=== PATIENT | female | born 1955 | race Caucasian/White ===

== ENCOUNTER 2021-07-14 05:15 | Day surgery (SDC) | payer OTHER ==
[~2021-07-14] VITALS: Ht 149.9 cm; Wt 59.5 kg
[~2021-07-14 05:15] MED LIST: ASPI-1450 PO; LISI-892 PO; METF-1211 PO; METO25XL PO; OMEP1CAP32 PO; SIMV-261 PO; SODIUM CHLORIDE 0.9% 1,000 ML IV SCH; TICA60TA PO; TICA90TA PO; [UNRECOGNIZED DRUG - CODE] CHEW
[2021-07-14] MEDS ORDERED: SODIUM CHLORIDE 0.9% 1,000 ML ONE (05:29)
[2021-07-14] MEDS ORDERED: ASPIRIN 81 MG CHEWABLE TABLET PO ONE (06:00)
[2021-07-14] MEDS ORDERED: DIAZEPAM 5 MG TABLET PO ONE (06:00)
[2021-07-14] MEDS ORDERED: DiphenhydrAMINE HCL 50 MG CAPSULE PO ONE (06:00)
[2021-07-14] MEDS ORDERED: ASPIRIN 81 MG CHEWABLE TABLET ONE (06:15)
[2021-07-14] MEDS ORDERED: DiphenhydrAMINE HCL 50 MG CAPSULE ONE (06:15)
[2021-07-14] MEDS ORDERED: DIAZEPAM 5 MG TABLET ONE (06:16)
[2021-07-14 06:56] LABS: GLUCOMETER DEV NAME(LOC) SDS.; GLUCOSE,POINT OF CARE 151 MG/DL (70-110)
[2021-07-14] MEDS ORDERED: IOHEXOL 300 MG/ML 50 ML VIAL ONE (07:29)
[2021-07-14] MEDS ORDERED: HEPARIN SODIUM 1000 UNITS/NS 1,000 ML ONE (07:30)
[2021-07-14] MEDS ORDERED: IOHEXOL 300 MG/ML 100 ML VIAL ONE (07:30)
[2021-07-14] MEDS ORDERED: LIDOCAINE/PF 1% 30 ML VIAL ONE (07:30)
[2021-07-14] MEDS ORDERED: IOHEXOL 300 MG/ML 150 ML VIAL ONE (07:30)
[2021-07-14] MEDS ORDERED: SODIUM BICARBONATE 50 MEQ/50 ML VIAL ONE (07:30)
[2021-07-14 07:47] VITALS: BP 139/76
[2021-07-14] MEDS ORDERED: FentaNYL CITRATE PF 100 MCG/2 ML VIAL ONE (07:50)
[2021-07-14] MEDS ORDERED: MIDAZOLAM HCL 2 MG/2 ML VIAL ONE (07:51)
[2021-07-14] MEDS ORDERED: MIDAZOLAM HCL 2 MG/2 ML VIAL IVP ONE (08:00)
[2021-07-14] MEDS ORDERED: HEPARIN SODIUM 1000 UNITS/NS 1,000 ML IARTER ONE (08:00)
[2021-07-14] MEDS ORDERED: IOHEXOL 300 MG/ML 150 ML VIAL IARTER ONE (08:00)
[2021-07-14] MEDS ORDERED: LIDOCAINE 1% 30 ML/SOD BICARB 8.4% 4 ML SQ ONE (08:00)
[2021-07-14] MEDS ORDERED: FentaNYL CITRATE PF 100 MCG/2 ML VIAL IVP ONE (08:00)
[2021-07-14] MEDS ORDERED: METOPROLOL TARTRATE 5 MG/5 ML VIAL ONE ×2 (08:13→08:18)
[2021-07-14] MEDS ORDERED: METOPROLOL TARTRATE 5 MG/5 ML VIAL IVP ONE ×2 (08:15→08:30)
[2021-07-14 08:27] VITALS: BP 132/77
== END 2021-07-14 13:10 | disposition home or self-care (01) ==
LOC: CATHLAB 05:15
PROVIDERS: ATTEND Internal Medicine Interventional Cardiology
DX: R94.39 Abnormal result of other cardiovascular function study (principal); R06.02 Shortness of breath; I25.10 Atherosclerotic heart disease of native coronary artery without angina pectoris; I25.82 Chronic total occlusion of coronary artery; E11.9 Type 2 diabetes mellitus without complications; I10 Essential (primary) hypertension; E78.5 Hyperlipidemia, unspecified; Z87.891 Personal history of nicotine dependence; Z79.84 Long term (current) use of oral hypoglycemic drugs; Z79.899 Other long term (current) drug therapy; Z90.49 Acquired absence of other specified parts of digestive tract; Z98.890 Other specified postprocedural states; Z83.3 Family history of diabetes mellitus; Z82.49 Family history of ischemic heart disease and other diseases of the circulatory system
CPT/HCPCS: 82962; 93005; 93458; 99152; C1760; J1644; J2250; J3010; J3490 ×3; J7030; Q9967